=== PATIENT | female | born 1990 | race Asian ===

== ENCOUNTER 2017-06-26 03:55 | Inpatient (IN) | payer SELFPAY ==
[~2017-06-26] VITALS: Ht 164 cm; Wt 62.6 kg
[2017-06-26] MEDS ORDERED: OXYTOCIN/NORMAL SALINE 1,000 ML IV SCH ×2 (04:03→14:50)
[2017-06-26] MEDS ORDERED: LR 1,000 ML IV ONE (04:03)
[2017-06-26] MEDS ORDERED: LR 1,000 ML IV SCH (04:03)
[2017-06-26] MEDS ORDERED: NALBUPHINE HCL 10 MG/ML AMP IVP PRN (04:15)
[2017-06-26] MEDS ORDERED: TERBUTALINE SULFATE 1 MG/ML VIAL SUBCUT ONE (04:15)
[2017-06-26 04:41] LABS: RED BLOOD CELL COUNT(AUTO) 3.85 MIL/uL (4.2-6.2); WHITE BLOOD COUNT (AUTO) 8.1 K/uL (4.8-10.8)
[2017-06-26 04:42] LABS: BASOPHILS % (AUTO) 1.3 % (0.0-2.0); EOSINOPHILS % (AUTO) 0.7 % (0.0-4.0); HEMATOCRIT 35.5 % (36-48); HEMOGLOBIN 12.1 g/dL (12.0-16.0); LYMPHOCYTES # (AUTO) 1.7 K/uL (1.0-5.5); LYMPHOCYTES % (AUTO) 20.6 % (20.5-51.5); MEAN CORPUSCULAR HEMOGLOBIN 31 pg (27-31); MEAN CORPUSCULAR HGB CONC 34 % (32-36); MEAN CORPUSCULAR VOLUME 92 fL (79.0-98.0); MONOCYTES % (AUTO) 7.2 % (1.7-9.3); NEUTROPHILS # (AUTO) 5.6 K/uL (1.8-7.7); NEUTROPHILS % (AUTO) 70.2 % (40.0-70.0); PLATELET COUNT (AUTO) 129 K/uL (130-430); RED CELL DISTRIBUTION WIDTH 13.2 % (9.0-15.0)
[2017-06-26 04:43] LABS: BASOPHILS # (AUTO) 0.1 K/uL (0.0-0.2); EOSINOPHILS # (AUTO) 0.1 K/uL (0.0-0.4); MONOCYTES # (AUTO) 0.6 K/uL (0.0-1.0)
[2017-06-26] MEDS ORDERED: fentaNYL CITRATE/PF 100 MCG/2 ML AMP ONE (07:09)
[2017-06-26] MEDS ORDERED: FENT2mCg/mL-ROPIVA0.2%/NS EPID 150 ML EP ONE (07:09)
[2017-06-26] MEDS ORDERED: LR 500 ML IV ONE (10:02)
[2017-06-26] MEDS ORDERED: FENT2mCg/mL-ROPIVA0.2%/NS EPID 150 ML EP SCH (10:15)
[2017-06-26] MEDS ORDERED: fentaNYL CITRATE/PF 100 MCG/2 ML AMP EP ONE (10:15)
[2017-06-26] MEDS ORDERED: ePHEDrine sulfate 50 MG/ML VIAL IVP PRN (10:15)
[2017-06-26 11:31] VITALS: BP_SYST 98
[2017-06-26] MEDS ORDERED: OXYTOCIN/NORMAL SALINE 1,000 ML IV ONE (14:50)
[2017-06-26] MEDS ORDERED: HYDROCORTISONE 0.5%, 28.35 GM TOPICAL CREAM TP PRN (15:00)
[2017-06-26] MEDS ORDERED: DERMOPLAST SPRAY TP PRN (15:00)
[2017-06-26] MEDS ORDERED: ACETAMINOPHEN 325 MG TABLET PO PRN (15:00)
[2017-06-26] MEDS ORDERED: RHO(D) IMMUNE GLOBULIN/MALTOSE 1500 UNITS/1.3 ML (WINHRO) IM PRN (15:00)
[2017-06-26] MEDS ORDERED: HYDROcodone/ACETAMIN 5-325 MG TAB (NORCO/ VICODIN) PO PRN (15:00)
[2017-06-26] MEDS ORDERED: ANUSOL 1 EA SUPP.RECT (PREPARATION H) RC PRN (15:00)
[2017-06-26] MEDS ORDERED: MEASLES,MUMPS&RUBELLA VACC/PF 12500 UNIT/0.5 ML VIAL SUBQ PRN (15:00)
[2017-06-26] MEDS ORDERED: METHYLERGONOVINE MALEATE 0.2 MG TABLET PO PRN (15:00)
[2017-06-26] MEDS ORDERED: LANOLIN 7 GM OINT. TP PRN (15:00)
[2017-06-26] MEDS ORDERED: GLYCERIN/WITCH HAZEL (TUCKS PADS) TP PRN (15:00)
[2017-06-26] MEDS ORDERED: TEMAZEPAM 15 MG CAPSULE PO PRN (15:00)
[2017-06-26] MEDS: IBUPROFEN 600 MG TABLET PO SCH (17:40)
[2017-06-26] MEDS: HYDROcodone/ACETAMIN 5-325 MG TAB (NORCO/ VICODIN) PO PRN ×3 (19:05→23:10)
[2017-06-27] MEDS: IBUPROFEN 600 MG TABLET PO SCH ×4 (00:19→19:19)
[2017-06-27 07:02] LABS: HEMATOCRIT 28.5 % (36-48); HEMOGLOBIN 9.4 g/dL (12.0-16.0)
[2017-06-27] MEDS: DOCUSATE SODIUM 100 MG CAPSULE PO PRN (09:52)
[2017-06-27] MEDS: HYDROcodone/ACETAMIN 5-325 MG TAB (NORCO/ VICODIN) PO PRN (13:54)
[2017-06-28] MEDS: IBUPROFEN 600 MG TABLET PO SCH ×3 (00:03→12:06)
[2017-06-28] MEDS: SENNOSIDES/DOCUSATE SODIUM 1 TAB TABLET(SENOKOT-S) PO PRN ×2 (01:00→14:29)
[2017-06-28] MEDS: DOCUSATE SODIUM 100 MG CAPSULE PO PRN ×2 (01:00→14:29)
[2017-06-28] MEDS ORDERED: DIPH-TET-PERTUS Vaccine 0.5 ML VIAL/Tdap (ADACEL) I.M. PRN (11:45)
[2017-06-28] MEDS ORDERED: LIDOCAINE PF 1% 30ML(POUR BTL) INJ ONE (14:59)
== END 2017-06-28 15:00 | disposition home or self-care (01) | DRG 775 ==
LOC: SPU 03:55
PROVIDERS: ADMIT Obstetrics & Gynecology; ATTEND Obstetrics & Gynecology
PROC: 10D07Z6 Extraction of Products of Conception, Vacuum, Via Natural or Artificial Opening (ICD-10-PCS; principal; 2017-06-26)
PROC: 0W8NXZZ Division of Female Perineum, External Approach (ICD-10-PCS; 2017-06-26)
PROC: 3E0R3CZ (ICD-10-PCS; 2017-06-26)
PROC: 00HU33Z Insertion of Infusion Device into Spinal Canal, Percutaneous Approach (ICD-10-PCS; 2017-06-26)
PROC: 3E0134Z Introduction of Serum, Toxoid and Vaccine into Subcutaneous Tissue, Percutaneous Approach (ICD-10-PCS; 2017-06-26)
DX: O75.89 Other specified complications of labor and delivery (principal); Z23 Encounter for immunization; Z37.0 Single live birth; Z3A.39 39 weeks gestation of pregnancy
CPT/HCPCS: 36415; 81002-TC; 85018-TC; 85025; 86592; 86886; 86900; 86901; 90715; J2001; J2590; J3010